=== PATIENT | female | born 1945 | race Caucasian/White ===

== ENCOUNTER 2016-07-27 07:53 | Day surgery (SDC) | payer MEDICARE, OTHER ==
--- NOTE | 2016-07-20 15:47 | HISTORY AND PHYSICAL E ---
History and Physical NAME: JOSSELYN MELTON : 1945 AGE: 70Y ADMITTED: 07/27/2016 ROOM: Patient for colon exam. She does have a history of polyps. Now followup colonoscopy regarding history of polyps. Admit 07/27. DICTATING PHYSICIAN: MERCEDES AU M.D. 1819M [id number] PHY#: [id number] ID: [id number] JOB#: [id number] ACCT: [id number] cc:KATARINA SEPULVEDA M.D., MAHMOUD M.D. >
--- NOTE | 2016-07-23 13:53 | HISTORY AND PHYSICAL E ---
History and Physical NAME: JOSSELYN MELTON : 1945 AGE: 70Y ADMITTED: 07/27/2016 ROOM: CHIEF COMPLAINT: Colon exam. PAST SURGICAL HISTORY: Bilateral mastectomy. SOCIAL HISTORY: Single. Two children. Does not smoke. Drinks rarely. FAMILY HISTORY: Father passed of old age. Mom at 72 with heart disease. PHYSICAL EXAMINATION: VITAL SIGNS: Blood pressure is 120/80, pulse 80, respirations 18, temp is 98. HEAD, EYES, EARS, NOSE, THROAT: Normal. ABDOMEN: Soft. NEUROLOGIC: Negative. REVIEW OF SYSTEMS: GASTROINTESTINAL: Reflux, hemorrhoids. ONCOLOGY: Breast cancer. NEUROLOGIC: Negative. CARDIAC: Negative. Colonoscopy in 2006 shows rectal polyp, transverse colon polyp. Upper scope, reflux, 2006. Colonoscopy in 2007 showing polyps. Colonoscopy 2010 showing no polyps. CONCLUSION: Colon screening. History of polyps. PLAN: Colonoscopy. MEDICATIONS: 1. Synthroid. 2. Crestor. 3. Nexium. DICTATING PHYSICIAN: MERCEDES AU M.D. 1211M [id number] PHY#: [id number] ID: [id number] JOB#: [id number] ACCT: [id number] cc:MERCEDES AU M.D. >
[~2016-07-27 07:53] MED LIST: EPINEPHRINE INJ 1 MG/10 ML DISP.SYRIN ONE; FLUMAZENIL INJ 0.5 MG/5 ML VIAL IV ONE; GLUCAGON,HUMAN RECOMB 1 MG INJ ONE; GLYCOPYRROLATE INJ 0.4 MG/2 ML VIAL ONE; LIDOCAINE 2% JELLY 30 ML TUBE ONE; NALOXONE HCL INJ/PF 0.4 MG/1 ML SDV ONE; ONDANSETRON HCL INJ/PF 4 MG/2 ML SDV ONE
[2016-07-27] MEDS: MIDAZOLAM 2 MG/2 ML INJ ONE ×2 (08:35→08:40)
[2016-07-27] MEDS: FENTANYL CITRATE INJ/PF 100 MCG/2 ML AMPUL ONE ×2 (08:37→08:48)
[2016-07-27 09:58] VITALS: BP 109/67
--- NOTE | 2016-07-27 13:59 | DISCHARGE SUMMARY E ---
Discharge Summary NAME: JOSSELYN MELTON : 1945 AGE: 70Y ADMITTED: 07/27/2016 DISCHARGED: 07/27/2016 HISTORY: The patient, a 70-year-old female, underwent colon exam today. She does have remote history in 2006 of polyps. She did have bilateral mastectomy. the right arm for IVs, which was achieved. FINDINGS: Colonoscopy was performed to the cecum. No polyps, no cancer, no malignancy. Sigmoid descending colon: Diverticulosis; mild external hemorrhoids. DISCHARGE PLAN: 1. Low residual diet, 2 days. 2. Consider colonoscopy followup 10 years. DICTATING PHYSICIAN: MERCEDES AU M.D. 1265M 0954 PHY#: [id number] ID: [id number] JOB#: [id number] ACCT: [id number] cc:KATARINA SEPULVEDA M.D., MAHMOUD M.D. >
--- NOTE | 2016-07-27 14:02 | OPERATIVE REPORT E ---
Operative Report NAME: JOSSELYN MELTON : 1945 AGE: 70Y DATE OF SURGERY: 07/27/2016 ROOM: PREOPERATIVE DIAGNOSIS: HISTORY OF POLYPS. POSTOPERATIVE DIAGNOSIS: 1. DIVERTICULOSIS. 2. SIGMOID DESCENDING COLON. 3. EXTERNAL HEMORRHOIDS, SMALL. OPERATION: Colonoscopy. TISSUE REMOVED OR ALTERED: None. SURGEON: MERCEDES AU M.D. ANESTHESIA: Versed 3 and fentanyl 100. PROCEDURE: Rectal exam, external hemorrhoids, small sigmoid descending colon, diverticulosis. Transverse colon redundant, normal. Ascending colon and cecum normal. Scope withdrawn from cecum, ascending, transverse, descending, sigmoid all the way to the rectum. CONCLUSION: 1. Diverticulosis. 2. Sigmoid descending colon. 3. External hemorrhoids. 4. No polyps. 5. No malignancy. PLAN: Soft, low residue diet 2 days. Consider followup colonoscopy 10 years. DICTATING PHYSICIAN: MERCEDES AU M.D. 1953M 0922 PHY#: [id number] ID: [id number] JOB#: [id number] ACCT: [id number] cc:KATARINA SEPULVEDA M.D., MAHMOUD M.D. >
== END 2016-07-27 10:00 | disposition home or self-care (01) ==
LOC: END 07:53
PROVIDERS: ATTEND Specialist
PROC: 0DJD8ZZ Inspection of Lower Intestinal Tract, Via Natural or Artificial Opening Endoscopic (ICD-10-PCS; principal; 2016-07-27 08:00)
DX: Z12.11 Encounter for screening for malignant neoplasm of colon (principal); K57.30 Diverticulosis of large intestine without perforation or abscess without bleeding; K64.4 Residual hemorrhoidal skin tags; Z86.010 Personal history of colon polyps; K21.9 Gastro-esophageal reflux disease without esophagitis; Z85.3 Personal history of malignant neoplasm of breast
CPT/HCPCS: G0121; J2250; J3010; J1610; 45378; J0171; J2310; J2405; J3490

== ENCOUNTER → 2017-04-07 | Outpatient (CLI) | payer MEDICARE, OTHER ==
--- NOTE | 2017-04-07 13:33 | EKG REPORT ---
SEVERITY:- NORMAL ECG - SINUS RHYTHM : Confirmed by: Dillan Corrales MD 07-Apr-2017 13:32:19
--- NOTE | 2017-04-09 12:35 | DRAGON STRESS TEST REPORT ---
Exercise EKG treadmill stress test. Data procedure: 04/07/2017. Ordering Provider: Dr. Rohit Olivier. Patient Status: Out Patient Indication: Precordial chest pain, and shortness of breath. Coronary risk factors:. Age, hyperlipidemia, and family history of coronary artery disease. Significant physical findings prior to stress testing show a blood pressure of 149/93 and a heart rate of 97 beat per minute. Auscultation of the heart shows normal S1 and S2.NoS3 or S4 gallops. Systolic murmur in the left sternal border and apex. Lungs are clear to auscultation and percussion. Resting 12-lead EKG: Sinus Rhythm. Within Normal Limits. Procedure: The patient was excised on a standard Adarsh protocol. . The patient walked a total of 5 minutes and 32 seconds on this protocol and reached a peak heart rate of 150 beats per minute, which is 100% of maximum predicted heart rate for age. This is at a workload of 7 METS. The test was stopped because of achievement of 100% of maximum predicted heart rate for age.. The patient described no symptoms of chest pain/discomfort. Exercise EKG: Showed no evidence of exercise-induced EKG evidence of ischemia Arrhythmias seen:None. The blood pressure response was normal. At peak exercise the blood pressure was 159/91 millimeters of Hg. The double product was 20.7 k. Summary of findings and interpretation: 1. No chest pain or chest discomfort symptoms reproduced. 2. [No] EKG evidence of ischemia in the form of ST segment depression. 3. Normal blood pressure response. 4. No arrhythmias seen. 5. Good exercise tolerance, good aerobic capacity. Diagnostic treadmill stress test negative for ischemia by EKG criteria. Recommendations: Aggressive risk factor modification, and treatment of underlying co-morbidities. MTDD
== END ==
LOC: SP 08:35
PROVIDERS: ATTEND Internal Medicine
DX: R07.2 Precordial pain (principal); R06.02 Shortness of breath; E78.5 Hyperlipidemia, unspecified; Z82.49 Family history of ischemic heart disease and other diseases of the circulatory system
CPT/HCPCS: 93005; 93010; 93017

== ENCOUNTER 2018-05-04 06:23 | Day surgery (SDC) | payer MEDICARE, OTHER ==
[~2018-05-04 06:23] MED LIST changes: -EPINEPHRINE INJ 1 MG/10 ML DISP.SYRIN ONE; -FLUMAZENIL INJ 0.5 MG/5 ML VIAL IV ONE; -GLUCAGON,HUMAN RECOMB 1 MG INJ ONE; -GLYCOPYRROLATE INJ 0.4 MG/2 ML VIAL ONE; +KETOROLAC TROMETHAMINE 0.45% 4 DROP/0.4 ML DROPERETTE OS PRN; -LIDOCAINE 2% JELLY 30 ML TUBE ONE; -NALOXONE HCL INJ/PF 0.4 MG/1 ML SDV ONE; -ONDANSETRON HCL INJ/PF 4 MG/2 ML SDV ONE
[2018-05-04] MEDS: TROPICAMIDE 1% OPH SOLN 3 ML OS PRN ×3 (06:48→07:08)
[2018-05-04] MEDS: CYCLOPENTOLATE 0.2%/PHENYLEPHRINE 1% OPH SOLN 2 ML OS PRN ×3 (06:48→07:08)
[2018-05-04] MEDS: BESIFLOXACIN HCL 0.6% OPH SUSP 5 ML BOTTLE OS PRN ×4 (06:48→07:55)
[2018-05-04] MEDS: TETRACAINE HCL 0.5% OPH SOLN 4 ML OS PRN ×3 (06:48→07:36)
[2018-05-04] MEDS ORDERED: LIDOCAINE 1% INJ-PF (10 MG/ML) 30 ML SDV ONE (07:06)
[2018-05-04] MEDS ORDERED: CHONDR SU A NA/HYALUR INTRAOC KIT (SURGICARE) ONE (07:06)
[2018-05-04] MEDS ORDERED: EPINEPHRINE INJ/PF 1 MG/1 ML AMPULE ONE (07:06)
[2018-05-04] MEDS ORDERED: MIDAZOLAM 2 MG/2 ML INJ ONE (07:31)
--- NOTE | 2018-05-04 21:52 | [facility] OPERATIVE REPORT E ---
[facility] Operative Report NAME: JOSSELYN MELTON AGE: 72Y DATE OF SURGERY: 05/04/2018 ROOM: PREOPERATIVE DIAGNOSIS: CATARACT, LEFT EYE. POSTOPERATIVE DIAGNOSIS: CATARACT, LEFT EYE. OPERATION: Cataract extraction with insertion of an IOL of the left eye. SURGEON: ERIKA NORTON M.D. ANESTHESIA: Topical. PROCEDURE: After obtaining appropriate consent, the patient's left eye was prepped and draped in sterile fashion as well as the surgeon in a sterile manner and cataract surgery was started. First a paracentesis blade was used to make a side-port incision. Viscoelastic was used to inflate the anterior chamber. Next a 2.4 mm incision was made with a 2.4 mm blade, clear corneal temporally. A continuous capsulorrhexis was made using a cystotome and Utrata forceps. Following this hydrodissection was carried out to make the lens fully loose and mobile and it was rotated 90 degrees. Following this, a ekrrqz-dyh-kimkhhd technique was used to phacoemulsify the lens with a CDE of 9.94. The remaining cortex was removed with irrigation/aspiration. Provisc was instilled into the capsular bag to inflate the bag. A SN60WF, 23.5 diopter lens was placed. The remaining viscoelastic material was removed with irrigation/aspiration. Following this, the incision was found to be watertight. Besivance was instilled into the eye and a protective shield was placed over the eye. The patient returned to the postoperative recovery in stable condition. DICTATING PHYSICIAN: ERIKA NORTON M.D. 5020M 2148 PHY#: [id number] ID: [id number] JOB#: [id number] ACCT: [id number] cc:ERIKA NORTON M.D. >
--- NOTE | 2018-05-04 21:53 | [facility] DISCHARGE SUMMARY E ---
[facility] Discharge Summary NAME: JOSSELYN MELTON AGE: 72Y ADMITTED: 05/04/2018 DISCHARGED: 05/04/2018 HOSPITAL COURSE: This is a 72-year-old female who underwent cataract extraction of the left eye. DIAGNOSIS: CATARACT, LEFT EYE. She underwent surgery because she was having trouble seeing small print. DISCHARGE INSTRUCTIONS: She should be on a regular diet. No bending at her waist, no heavy lifting. She should use her Besivance, PROLENSA, and Durezol at 3 p.m. and 8 p.m. and sleep with a rigid shield. I will see her for her 1 day postoperative tomorrow. DICTATING PHYSICIAN: ERIKA NORTON M.D. 5020M 2149 PHY#: [id number] ID: [id number] JOB#: [id number] ACCT: [id number] cc:ERIKA NORTON M.D. >
== END 2018-05-04 08:35 | disposition home or self-care (01) ==
LOC: SC 06:23
PROVIDERS: ATTEND Internal Medicine
DX: H25.13 Age-related nuclear cataract, bilateral (principal); H04.123 Dry eye syndrome of bilateral lacrimal glands; H43.813 Vitreous degeneration, bilateral; E03.9 Hypothyroidism, unspecified; E78.00 Pure hypercholesterolemia, unspecified; M19.90 Unspecified osteoarthritis, unspecified site; Z85.3 Personal history of malignant neoplasm of breast; Z91.040 Latex allergy status; G47.30 Sleep apnea, unspecified; Z88.5 Allergy status to narcotic agent; Z79.1 Long term (current) use of non-steroidal anti-inflammatories (NSAID); Z79.899 Other long term (current) drug therapy
CPT/HCPCS: 66984; V2632; J2250; J3490 ×3; A9270; J0171; 142

== ENCOUNTER 2018-05-25 09:23 | Day surgery (SDC) | payer MEDICARE, OTHER ==
[~2018-05-25 09:23] MED LIST changes: +KETOROLAC TROMETHAMINE 0.45% 4 DROP/0.4 ML DROPERETTE OD PRN; -KETOROLAC TROMETHAMINE 0.45% 4 DROP/0.4 ML DROPERETTE OS PRN
[2018-05-25] MEDS: CYCLOPENTOLATE 0.2%/PHENYLEPHRINE 1% OPH SOLN 2 ML OD PRN ×3 (10:08→10:28)
[2018-05-25] MEDS: BESIFLOXACIN HCL 0.6% OPH SUSP 5 ML BOTTLE OD PRN ×5 (10:08→11:04)
[2018-05-25] MEDS: TROPICAMIDE 1% OPH SOLN 3 ML OD PRN ×3 (10:08→10:28)
[2018-05-25] MEDS: TETRACAINE HCL 0.5% OPH SOLN 4 ML OD PRN ×4 (10:09→10:47)
[2018-05-25] MEDS ORDERED: MIDAZOLAM 2 MG/2 ML INJ ONE (10:21)
[2018-05-25] MEDS: LIDOCAINE 1% INJ-PF (10 MG/ML) 30 ML SDV ONE ×3 (10:37→10:55)
[2018-05-25] MEDS: EPINEPHRINE INJ/PF 1 MG/1 ML AMPULE ONE ×2 (10:38→10:55)
[2018-05-25] MEDS: DORZOLAMIDE HCL 2%/TIMOLOL MALEAT 0.5% OPH SOLN 10 ML OD PRN ×3 (10:50→11:04)
[2018-05-25] MEDS: CHONDR SU A NA/HYALUR INTRAOC KIT (SURGICARE) ONE ×2 (10:50→10:55)
--- NOTE | 2018-05-26 01:02 | [facility] OPERATIVE REPORT E ---
[facility] Operative Report NAME: JOSSELYN MELTON AGE: 72Y DATE OF SURGERY: 05/25/2018 ROOM: PREOPERATIVE DIAGNOSIS: CATARACT, RIGHT EYE. POSTOPERATIVE DIAGNOSIS: CATARACT, RIGHT EYE. OPERATION: Cataract extraction with insertion of an IOL of the right eye. SURGEON: ERIKA NORTON M.D. ANESTHESIA: Topical. PROCEDURE: After obtaining appropriate consent, the patient's right eye was prepped and draped in sterile fashion as well as the surgeon in a sterile manner and cataract surgery was started. First a paracentesis blade was used to make a side-port incision. Viscoelastic was used to inflate the anterior chamber. Next a 2.4 mm incision was made with a 2.4 mm blade, clear corneal temporally. A continuous capsulorrhexis was made using a cystotome and Utrata forceps. Following this hydrodissection was carried out to make the lens fully loose and mobile and it was rotated 90 degrees. Following this, a ccjjzo-nql-rvhszdv technique was used to phacoemulsify the lens with a CDE of 6.81. The remaining cortex was removed with irrigation/aspiration. Provisc was instilled into the capsular bag to inflate the bag. A SN60WF, 22.5 diopter lens was placed. The remaining viscoelastic material was removed with irrigation/aspiration. Following this, the incision was found to be watertight. Besivance was instilled into the eye and a protective shield was placed over the eye. The patient returned to the postoperative recovery in stable condition. DICTATING PHYSICIAN: ERIKA NORTON M.D. 5020M 0059 PHY#: [id number] ID: [id number] JOB#: [id number] ACCT: [id number] cc:ERIKA NORTON M.D. >
--- NOTE | 2018-05-26 01:03 | [facility] DISCHARGE SUMMARY E ---
[facility] Discharge Summary NAME: JOSSELYN MELTON AGE: 72Y ADMITTED: 05/25/2018 DISCHARGED: 05/25/2018 HOSPITAL COURSE: This is a 72-year-old female who underwent cataract extraction of the right eye. DIAGNOSIS: CATARACT, RIGHT EYE. She underwent surgery because she was having difficulty driving at night secondary to glare from headlights. DISCHARGE INSTRUCTIONS: She should be on a regular diet. No bending at her waist, no heavy lifting. She should use Besivance, PROLENSA, and Durezol at 3 p.m. and 8 p.m. and sleep with a rigid shield. I will see her for her 1 day postoperative tomorrow. DICTATING PHYSICIAN: ERIKA NORTON M.D. 5020M 99 PHY#: [id number] ID: [id number] JOB#: [id number] ACCT: [id number] cc:ERIKA NORTON M.D. >
== END 2018-05-25 11:49 | disposition home or self-care (01) ==
LOC: SC 09:23
PROVIDERS: ATTEND Internal Medicine
DX: H25.11 Age-related nuclear cataract, right eye (principal); Z96.1 Presence of intraocular lens; Z79.1 Long term (current) use of non-steroidal anti-inflammatories (NSAID); E07.9 Disorder of thyroid, unspecified; Z79.899 Other long term (current) drug therapy; Z91.040 Latex allergy status; Z88.5 Allergy status to narcotic agent
CPT/HCPCS: 66984; V2632; J2250; J3490 ×3; A9270; J0171